=== PATIENT | female | born 1945 | race Caucasian/White ===

== ENCOUNTER 2018-02-18 19:43 | Emergency (ER) | payer MEDICARE, OTHER ==
[~2018-02-18] VITALS: Ht 157.5 cm; Wt 72.6 kg
[~2018-02-18 19:43] MED LIST: HYDR2TAB31 PO; MECL25TA3 PO; METH4TAB2 PO
[2018-02-18] MEDS ORDERED: diazePAM 5 MG TABLET PO ONE (20:15)
[2018-02-18] MEDS ORDERED: DIAZ2TAB PO (20:18)
--- NOTE | 2018-02-18 20:19 | PHYS DOC ---
Past History Past Medical History: High Cholesterol, Hypertension, Sciatica Past Surgical History: Hysterectomy Smoking: Non-smoker Alcohol Use: None Drug Use: None Adult General Chief Complaint Chief Complaint: SHORTNESS OF BREATH HPI HPI 72-year-old female presents via EMS with report of "panic attack" in which patient reports she was unable to breathe. Her and her report they are currently moving residence and patient has increased life stressors. Patient reports she normally takes Celexa daily and has lorazepam as needed. Patient reports she did not take the lorazepam today. Patient denies any trauma. Denies chest pain. Reports currently her shortness of breath has resolved. Reports she does have a chronic cough but no change from normal. Patient also reports chronic low back pain. Denies fever or chills. Denies leg swelling or calf tenderness. Review of Systems Review of Systems Constitutional: Denies fever or chills [] Eyes: Denies change in visual acuity, redness, or eye pain [] HENT: Denies nasal congestion or sore throat [] Respiratory: Reports chronic cough and now resolved episode of shortness of breath [] Cardiovascular: Denies chest pain or pleuritic pain GI: Denies abdominal pain, nausea, vomiting, bloody stools or diarrhea [] : Denies dysuria or hematuria [] Musculoskeletal: Denies leg swelling or calf tenderness; reports chronic low back pain Integument: Denies rash or skin lesions [] Neurologic: Denies headache, focal weakness or sensory changes [] Complete systems were reviewed and found to be within normal limits, except as documented in this note. Allergies Allergies Allergies Coded Allergies Type Severity Reaction Last Updated Verified morphine Allergy Intermediate gi 11/16/14 No Physical Exam Physical Exam Constitutional: Well developed, well nourished, no acute distress, non-toxic appearance. [] HENT: Normocephalic, atraumatic, oropharynx moist Eyes: PERRL, EOMI, conjunctiva normal, no discharge. [] Neck: Normal range of motion, paraspinal tenderness, supple, no stridor. [] Cardiovascular: Heart rate regular rhythm, no murmur [] Lungs & Thorax: Bilateral breath sounds clear to auscultation, no wheezes/ rhonchi/rales Abdomen: Soft, no tenderness Skin: Warm, dry, no erythema, no rash. [] Back: No midline tenderness, Paraspinal tenderness bilaterally to lumbar region L>R Extremities: No calf tenderness or edema, ROM intact Neurologic: Alert and oriented X 3, normal motor function, normal sensory function, no focal deficits noted. [] Psychologic: Affect normal, judgement normal, mood slightly anxious EKG EKG @2016 on 02/18/2018: NSR at 91bpm, nonspecific t wave inversion I and aVL, NO ST elevation. Radiology/Procedures Radiology/Procedures [] Course & Med Decision Making Course & Med Decision Making Pertinent Labs and Imaging studies reviewed. (See chart for details) Patient presents with history of present illness physical exam which appear consistent for patient self described anxiety attack. Patient reports no symptoms at this time. Patient does appear mildly anxious. Patient also complains of 4 out of 10 low back pain which is chronic in nature. Denies loss of bowel or bladder. No midline bony tenderness appreciated. Denies trauma. Symptomatic treatment provided with oral Valium. Screening EKG obtained without acute process. Patient reports interval improvement. Patient stable for discharge with outpatient follow-up with PCP. Discussed findings and plan with patient and family, who acknowledge understanding and agreement. Dragon Disclaimer Dragon Disclaimer This electronic medical record was generated, in whole or in part, using a voice recognition dictation system. Departure Departure: Impression: Primary Impression: Panic attack Additional Impression: Chronic back pain Disposition: 01 HOME, SELF-CARE Condition: IMPROVED Referrals: CEDRICK CAPONE MD (PCP) Patient Instructions: Anxiety and Panic Attacks, [id number], Chronic Back Pain Scripts Diazepam (VALIUM) 2 Mg Tablet 2 MG PO TID PRN for ANXIETY / AGITATION, #10 TAB Prov: MAY BENSON DO 02/18/18 Problem Qualifiers Additional Impression: Chronic back pain Back pain location: low back pain Back pain laterality: bilateral Sciatica presence: without sciatica Qualified Codes: M54.5 - Low back pain; G89.29 - Other chronic pain MAY BENSON DO Feb 18, 2018 20:19
[2018-02-18 20:37] VITALS: BP 170/111
--- NOTE | 2018-02-18 22:08 | EKG ---
[address] [address] Test Date: 2018-02-18 Test Time: 20:16:28 Pat Name: BENEDICTO BOYKIN Department: Room: Gender: F Ammonium Nitrate Neutralizer: : 1945 Requested By: MAY BENSON Order Number: [id number] Reading MD: José Miguel Michaels MD Measurements Intervals [place] Rate: 91 P: 0 MS: 158 QRS: -24 QRSD: 90 T: 126 QT: 376 QTc: 464 Interpretive Statements SINUS RHYTHM LVH NON-SPECIFIC ST/T CHANGES Electronically Signed On 02-21-2018 12:06:22 CDT by José Miguel Michaels MD
== END 2018-02-18 20:30 | disposition home or self-care (01) ==
LOC: ER 19:43
DX: F41.0 Panic disorder [episodic paroxysmal anxiety] (principal); G89.29 Other chronic pain; M54.5 Low back pain; E78.00 Pure hypercholesterolemia, unspecified; I10 Essential (primary) hypertension; Z90.710 Acquired absence of both cervix and uterus; Z88.5 Allergy status to narcotic agent
CPT/HCPCS: 93005; 99284